=== PATIENT | male | born 1960 | race African-American/Black ===

== ENCOUNTER 2018-12-20 12:54 | Inpatient (IN) | payer MEDICARE ==
[~2018-12-20] VITALS: Ht 165.1 cm; Wt 68.0 kg
[~2018-12-20 12:54] MED LIST: APAP325 MG PO; APRESOLINE50 MG PO; ASCORBIC ACID500 MG PO; CARBATROL 200200 MG PO; CELEXA20 MG PO; DAILY MULTIVITA1 TA1 PO; ISOSORBIDE DINI20 MG PO; LANTUS INSULIN10 ML SC; LEVAQUIN500 MG PO; LOPRESSOR50 MG PO; MAXZIDE-25 MG T1 TAB PO; MELATONIN 3 MG1 TAB PO; NORCO 5/325 TAB1 TA1 PO; NORVASC10 MG PO; NOVOLOG100 U/M1 SQ; PEPCID20 MG PO; TRIMETHOPRIM100 MG PO; ZANAFLEX4 MG PO
--- NOTE | 2018-12-20 14:32 | NUR ---
PATIENT ADMITTED TO ROOM 2228. ALERT BUT NONVERBAL. NODS HEAD IN RESPONSE TO QUESTIONS. LUNGS CLEAR BILATERALLY IN ALL ANTOINE. HEART SOUNDS S1 AND S2 HEARD IN ALL ANTOINE. BOWEL SOUNDS ACTIVE X 4. SKIN INTACT WITHOUT REDNESS. SUPRAPUBIC CATHETER PATENT AND DRAINING YELLOW URINE. G TUBE IN PLACE FOR FEEDINGS. DRSGS CHANGED TO BOTH SITES TODAY 12/20/18. FALL PRECAUTIONS IN PLACE. BED LOW. CALL [place] AND PERSONAL ITEMS IN REACH. VITALS STABLE. WILL CONTINUE TO MONITOR.
[2018-12-20 14:43] VITALS: BP 148/93; BMI 25.0
[2018-12-20] MEDS ORDERED: CARDURA1 MG PO (15:09)
[2018-12-20] MEDS ORDERED: CATAPRES0.1 MG PO (15:10)
[2018-12-20] MEDS ORDERED: VALIUM 2 MG TAB2 MG PO (15:11)
[2018-12-20] MEDS ORDERED: DILANTIN50 MG PO (15:13)
[2018-12-20] MEDS ORDERED: STOOL SOFTENER100 M1 PO (15:14)
[2018-12-20] MEDS ORDERED: GLUCAGEN1 MG/VIAL SC (15:15)
[2018-12-20] MEDS ORDERED: MILK OF MAGNESI30 ML PO (15:16)
[2018-12-20] MEDS ORDERED: LEVEMIR IN100 UNITS/ SC (15:16)
[2018-12-20] MEDS ORDERED: MIRALAX17 GM PO (15:17)
[2018-12-20] MEDS ORDERED: OMEPRAZOLE20 M1 PO (15:18)
[2018-12-20] MEDS ORDERED: ZOFRAN4 MG IV (15:19)
[2018-12-20] MEDS ORDERED: ZOFRAN4 MG PO (15:19)
[2018-12-20] MEDS ORDERED: POTASSIUM20 MEQ/11 PO (15:20)
[2018-12-20] MEDS ORDERED: ZOCOR10 MG PO (15:21)
[2018-12-20] MEDS ORDERED: ZOLOFT50 MG PO (15:21)
[2018-12-20] MEDS ORDERED: REGLAN10 MG PO (15:21)
[2018-12-20] MEDS ORDERED: ACETAMINOPHEN325 MG PO (15:22)
--- NOTE | 2018-12-20 15:31 | NUR ---
IV INSERTED TO RIGHT HAND AFTER 3 ATTEMPTS BY 2 RNS.
--- NOTE | 2018-12-20 16:58 | NUR ---
ORDER PLACED FOR BUN AND CREATININ FOR CT SCAN. CONTRAST GIVEN THROUGH G TUBE.
--- NOTE | 2018-12-20 17:34 | NUR ---
RESTING IN BED. NO SIGNS OF PAIN OR DISTRESS. FALL PRECAUTIONS IN PLACE. BED LOW. WILL CONTINUE TO MONITOR.
[2018-12-20 17:57] LABS: CREATININE - SERUM 2.7 mg/dL (0.6-1.3)
--- NOTE | 2018-12-20 18:23 | NUR ---
RESTING IN BED. DENIES PAIN. DENIES NEEDS.
--- NOTE | 2018-12-20 20:00 | NUR ---
LYING QUEITLY WITH NO COMPLAINTS VOICED. RESP EVEN AND UNLABORED. NO DISTRESS NOTED. IV TO RIGHT HAND INTACT WITHOUT REDNESS OR EDEMA NOTED. PEG TUBE PATENT WITH DRESSING INTACT. SUPRA CATH PATENT AND DRAINING DARK ESTEFANIA URINE. CL IN REACH
[2018-12-20 21:01] VITALS: BP 171/91
--- NOTE | 2018-12-21 00:40 | NUR ---
I have reviewed this patient and I concur with the Shift Assessment completed by the Licensed Practical Nurse today this shift.
[2018-12-21 01:54] VITALS: BP 188/100
[2018-12-21 05:41] VITALS: BP 150/93
[2018-12-21 07:33] LABS: BASOPHILS 0.3 % (0-2); EOSINOPHILS 0.1 % (0-7); HEMATOCRIT 31.7 % (42.0-54.0); HEMOGLOBIN 10.4 g/dL (13.5-17.5); IMMATURE GRANULOCYTES 0.1 % (0-5); LYMPHOCYTES 17.3 % (15-50); MCH 27.4 pg (26.0-34.0); MCHC 32.8 g/dL (31.0-37.0); MCV 83.6 fL (80.0-100.0); MEAN PLATELET VOLUME 9.3 fL (7.4-10.4); NEUTROPHILS 64.2 % (40-80); RBC 3.79 10x6/uL (4.20-6.10); RDW 15.3 % (11.5-14.5); WBC 7.4 10x3/uL (4.8-10.8)
[2018-12-21 07:55] LABS: PLATELET COUNT 484 10x3/uL (130-400)
[2018-12-21 07:56] LABS: ANION GAP 17.8 mmol/L (8-16); CALCIUM 8.9 mg/dL (8.5-10.1); CARBON DIOXIDE 22.9 mmol/L (21.0-32.0); POTASSIUM - SERUM 3.7 mmol/L (3.5-5.1)
--- NOTE | 2018-12-21 08:02 | NUR ---
ALERT AND ORIENTED X 3. VERBALLY RESPONSIVE TO QUESTIONS TODAY IN CONTRAST WITH ADMISSION YESTERDAY. LUNGS CLEAR BILATERALLY IN ALL ANTOINE. HEART SOUNDS S1 AND S2 HEARD IN ALL ANTOINE. BOWEL SOUNDS ACTIVE X 4. STATES THREW UP LAST NIGHT. RACHELL BILL NOTIFIED. NO NEW ORDERS AT THIS TIME. S/P SINHA PATENT AND DRAINING YELLOW URINE. G TUBE PATENT. DENIES PAIN. DENIES NEEDS. FALL PRECAUTIONS IN PLACE. BED LOW[facility]
--- NOTE | 2018-12-21 09:36 | NUR ---
SPOKE WITH [facility] WHO STATED THAT PATIENT HAS A BROTHER BY THE NAME OF GREGORY CABRAL WHO IS PATIENT'S RESPONSIBLE LIBERTARIAN. WAS GIVEN THREE PHONE NUMBERS, A HOME, CELL, AND OFFICE, TO CALL PATIENT'S BROTHER. ATTEMPTED TO CALL BROTHER TO OBTAIN CONSENT FOR EGD. CELL PHONE GOT NO ANSWER. HOME AND OFFICE NUMBERS BOTH LED TO [employer] WHO STATED THEY HAD NO ONE BY THAT NAME.
--- NOTE | 2018-12-21 09:50 | NUR ---
VERBAL CONSENT GIVEN BY PATIENT FOR EGD AND WITNESSED BY TWO NURSES. CONSENTS IN CHART.
--- NOTE | 2018-12-21 09:51 | NUR ---
ADDITION TO PREVIOUS NOTE. VERBAL CONSENT ALSO GIVEN BY PATIENT FOR BLOOD PRODUCTS IF NEEDED AND ANESTHESIA. WITNESSED BY TWO NURSES.
--- NOTE | 2018-12-21 10:12 | NUR ---
SPOKE WITH FERNY SCOTT AND TOLD THEM ABOUT SITUATION WITH BROTHER'S PHONE NUMBERS LEADING TO [employer]. FERNY SCOTT RN STATED "THAT'S WEIRD. I'M NOT SURE."
[2018-12-21 12:07] VITALS: BP 177/90
--- NOTE | 2018-12-21 13:54 | MORECARE ---
CASE MANAGEMENT DISCHARGE SUMMARY PATIENT: EDYTA MEDINA UNIT: [id number] ADM DATE: 12/20/18 AGE: 58 : 64 SEX: M ROOM/BED: D.2228 AUTHOR: NENA MORROW PHYSICIAN: REFERRING PHYSICIAN: MARLENE SILVA MD DATE OF SERVICE: 12/21/18 Discharge Plan Patient Name: EDYTA MEDINA [facility] : 1960 Planned Disposition: [facility] Facility w Plan Readm Anticipated Discharge Date: 12/21/18 Discharge Date: Expected LOS: 1 Initial Reviewer: [email or web address] Initial Review Date: 12/21/2018 Generated: 12/21/18 2:53 pm DCPIA - Discharge Planning Initial Assessment Updated by [email or web address]: Chichi Garzon on 12/21/18 1:51 pm * Is the patient Alert and Oriented? No * PCP Dr. Huggins * Pharmacy Per [place] * Preadmission Environment [facility] * Facility Name [facility] * List name and contact numbers for known caregivers / representatives who currently or will assist patient after discharge: Tyler Jak - brother - [phone] * Additional services required to return to the preadmission environment? No * Can the patient safely return to the preadmission environment? Yes * Has this patient been hospitalized within the prior 30 days at any hospital? No Coverage Notice Reviewer: [id number] Zarina Garzon Notice Issued Date-Time: 12/21/2018 13:47 Notice Type: Patient Choice Letter Notice Delivered To: Family Member Relationship to Patient: Brother Mixer Pigment Name: Tyler Benedict Delivery Method: PHONE - Phone Vida Days: Prior Verbal Notification: Recipient Understood Notice: Yes Recipient Signature: Med Rec Note Co-signed by Attending: Coverage Notice Comment: SHE[facility]BY for [facility] Patient Name: EDYTA MEDINA Page 35760 at 1354 All edits/amendments must be made on the electronic document DICTATION DATE: 12/21/18 1353 GIFT BASKET PACKER: RUFUS 12/21/18 1353 RPT#: [id number] DC DATE: STATUS: ADM IN [facility] [address] [place] [address] END OF REPORT
--- NOTE | 2018-12-21 14:01 | MORECARE ---
CASE MANAGEMENT DISCHARGE SUMMARY PATIENT: EDYTA MEDINA UNIT: [id number] ADM DATE: 12/20/18 AGE: 58 : 64 SEX: M ROOM/BED: D.2228 AUTHOR: ODALYSDOC PHYSICIAN: REFERRING PHYSICIAN: MARLENE SILVA MD DATE OF SERVICE: 12/21/18 Discharge Plan Patient Name: EDYTA MEDINA Facility: [facility]:[place] : 1960 Planned Disposition: [facility] Facility w Plan Readm Anticipated Discharge Date: 12/21/18 Discharge Date: Expected LOS: 1 Initial Reviewer: [email or web address] Initial Review Date: 12/21/2018 Generated: 12/21/18 3:01 pm Comments DCP- Discharge Planning Updated by [email or web address]: Chichi Garzon on 12/21/18 12:[address] Patient Name: EDYTA MEDINA Admission Status: Elective Accout number: [id number] Admission Date: 12-20-2018 : 1960 Admission Diagnosis: Attending: MARLENE SILVA Current LOS: 1 Anticipated DC Date: 12-21-2018 Planned Disposition: [facility] w Plan Readm Primary Insurance: MEDICARE A & B Discharge Planning Comments: CM called [facility] to get a call or contact centre operator for this patient. His brother, Tyler, is his call or contact centre operator. I also verified per Simon request that code status is a full code per custodial records. Patient is a jail resident of [facility]. His brother states he will return there on discharge. His brother states he is dependent on the nursing staff there. He states he is able to transfer in their van when ready to return. CM will continue to follow and assist with discharge planning/needs. Tyler Benedict - brother - [phone] [facility] - [phone] Post Hole Digging Machine Operator: Chichi Garzon DCPIA - Discharge Planning Initial Assessment Updated by [email or web address]: Chichi Garzon on 12/21/18 1:51 pm * Is the patient Alert and Oriented? No * PCP Dr. Huggins * Pharmacy Per [facility] * Preadmission Environment [facility] * Facility Name [facility] * List name and contact numbers for known caregivers / representatives who currently or will assist patient after discharge: Tyler Srinivasan brother - [phone] * Additional services required to return to the preadmission environment? No * Can the patient safely return to the preadmission environment? Yes * Has this patient been hospitalized within the prior 30 days at any hospital? No Coverage Notice Reviewer: [id number] Zarina Garzon Notice Issued Date-Time: 12/21/2018 13:47 Notice Type: Patient Choice Letter Notice Delivered To: Family Member Relationship to Patient: Brother Hammer Mill Operator Name: Tyler Benedict Delivery Method: PHONE - Phone Vida Days: Prior Verbal Notification: Recipient Understood Notice: Yes Recipient Signature: Med Rec Note Co-signed by Attending: Coverage Notice Comment: SHELBY for [facility] Last DP export: 12/21/18 12:53 p Patient Name: EDYTA MEDINA Page 61985 at 1401 All edits/amendments must be made on the electronic document DICTATION DATE: 12/21/18 1401 PUTTY REMOVER: RUFUS 12/21/18 1401 RPT#: [id number] DC DATE: STATUS: ADM IN [facility] [address] [place] [address] END OF REPORT
--- NOTE | 2018-12-21 14:45 | NUR ---
PATIENT FOUND WITH VOMIT ON GOWN AND BED SOILED. WILL CHANGE LINENS
--- NOTE | 2018-12-21 15:07 | NUR ---
PREOP MEDICATION GIVEN.
[2018-12-21 15:47] VITALS: Ht 165.1 cm; Wt 68.0 kg
--- NOTE | 2018-12-21 16:45 | NUR ---
REPORT GIVEN TO CARLA MORENO. PATIENT HANDED OFF.
--- NOTE | 2018-12-21 19:00 | NUR ---
REPORT RECEIVED AND CARE OF PT ASSUMED. PT LYING IN SUPINE POSITION WITH EYES CLOSED. SUPRA PUBIC CATHETER DRAINING TO GRAVITY WITH YELLOW URINE IN COLLECTION BAG. NPO STATUS IN PLACE. IV IN RIGHT WRIST PATENT WITH 1/2 NS INFUSING AT 100 ML / HR. G-TUBE CLAMPED. WILL MONITOR FOR NEEDS.
[2018-12-21 20:00] VITALS: BP 191/95
--- NOTE | 2018-12-21 21:30 | NUR ---
HS MEDICATIONS GIVEN VIA G-TUBE. FLUSHED WITH 60 ML WATER BEFORE AND AFTER MEDS.
[2018-12-22] VITALS: BP 164/93
[2018-12-22 04:00] VITALS: BP 174/90
[2018-12-22 04:02] LABS: BASOPHILS 0.2 % (0-2); EOSINOPHILS 0 % (0-7); HEMATOCRIT 29.1 % (42.0-54.0); HEMOGLOBIN 9.6 g/dL (13.5-17.5); IMMATURE GRANULOCYTES 0.3 % (0-5); MCH 27.4 pg (26.0-34.0); MCV 83.1 fL (80.0-100.0); MONOCYTES 16.7 % (2-11); NEUTROPHILS 70.8 % (40-80); PLATELET COUNT 397 10x3/uL (130-400); RDW 15.6 % (11.5-14.5)
[2018-12-22 04:06] LABS: WBC 13.6 10x3/uL (4.8-10.8)
[2018-12-22 04:14] LABS: ANION GAP 14.3 mmol/L (8-16); CALCIUM 8.7 mg/dL (8.5-10.1); CARBON DIOXIDE 24.8 mmol/L (21.0-32.0); POTASSIUM - SERUM 4.1 mmol/L (3.5-5.1)
--- NOTE | 2018-12-22 05:30 | NUR ---
PT TURNED AND BEDDING CHANGED IF NEEDED EVERY 2 HOURS DURING THIS SHIFT...PROPPED WITH PILLOWS.
--- NOTE | 2018-12-22 07:30 | NUR ---
PT RESTING IN BED, EYES CLOSED. RESPIRATIONS EVEN AND UNLABORED. NO C/O PAIN. NO S/S OF ACUTE DISTRESS NOTED. PT ACHS BLOODSUGARS. PT ON BEDREST. CONTRACTURES TO RIGHT AND LEFT HANDS. SUPRAPUBIC CATHETER PRESENT. INCONTINENT OF BOWEL. SCD'S REFUSED. G-TUBE PRESENT, MEDS GIVEN THROUGH TUBE. IV TO RIGHT WRIST, 1/2 NS INFUSING @ 100ML/HR. SITE PATENT WITHOUT REDNESS OR SWELLING. PT DENIES ANYTHING FURTHER AT THIS TIME. CALL LIGHT IN REACH. WILL CONTINUE TO MONITOR.
[2018-12-22 09:01] VITALS: BP 129/85
--- NOTE | 2018-12-22 09:55 | NUR ---
PT NON RESPONSIVE TO STIMULI, CHECKED BLOOD SUGAR. BLOOD SUGAR 44, CALLED [facility], ORDERED D5O FOR PT. GAVE PT D50, RECHECKED BLOOD SUGAR, 167. PT NOW ALERT AND RESPONSIVE. NO S/S OF ACUTE DISTRESS NOTED. CALL LIGHT IN REACH. WILL CONTINUE TO MONITOR.
--- NOTE | 2018-12-22 13:00 | NUR ---
NUTRITION F/U RECEIVED VERBAL ORDER FROM MD TO RESUME ALF TUBE FEEDS. WILL RUN CONTINUOUS INSTEAD OF BOLUS IN LIGHT OF RECENT N/V. OK TO RESUME BOLUS FEEDS UPON RETURN TO [place] RD FOLLOWING
[2018-12-22 13:07] VITALS: BP 140/78
--- NOTE | 2018-12-22 13:57 | NUR ---
STARTED SUPLENA TUBE FEEDINGS @ 15ML/HR WITH 25ML FLUSH Q HOUR.
--- NOTE | 2018-12-22 14:34 | MORECARE ---
CASE MANAGEMENT DISCHARGE SUMMARY PATIENT: EDYTA MEDINA UNIT: [id number] ADM DATE: 12/20/18 AGE: 58 : 64 SEX: M ROOM/BED: D.2228 AUTHOR: ODALYSDOC PHYSICIAN: REFERRING PHYSICIAN: MARLENE SILVA MD DATE OF SERVICE: 12/22/18 Discharge Plan Patient Name: EDYTA MEDINA Facility: [facility]:[place] : 1960 Planned Disposition: [facility] Facility w Plan Readm Anticipated Discharge Date: 12/21/18 Discharge Date: Expected LOS: 1 Initial Reviewer: [id number] Initial Review Date: 12/21/2018 Generated: 12/22/18 3:34 pm Comments DCP- Discharge Planning Updated by [id number]: Chichi Garzon on 12/21/18 12:[address] Patient Name: EDYTA MEDINA Admission Status: Elective Accout number: [id number] Admission Date: 12-20-2018 : 1960 Admission Diagnosis: Attending: MARLENE SILVA Current LOS: 1 Anticipated DC Date: 12-21-2018 Planned Disposition: [facility] w Plan Readm Primary Insurance: MEDICARE A & B Discharge Planning Comments: CM called [facility] to get a contact acid plant operator for this patient. His brother, Tyler, is his contact acid plant operator. I also verified per Simon request that code status is a full code per [facility] records. Patient is a [facility] resident of [facility]. His brother states he will return there on discharge. His brother states he is dependent on the nursing staff there. He states he is able to transfer in their van when ready to return. CM will continue to follow and assist with discharge planning/needs. Tyler Benedict - brother - [phone] [facility] - [phone] Psychologist Military Personnel: Chichi Garzon DCPIA - Discharge Planning Initial Assessment Updated by [email or web address]: Chichi Garzon on 12/21/18 1:51 pm * Is the patient Alert and Oriented? No * PCP Dr. Huggins * Pharmacy Per [facility] * Preadmission Environment [facility] * Facility Name [facility] * List name and contact numbers for known caregivers / representatives who currently or will assist patient after discharge: Tyler Srinivasan brother - [phone] * Additional services required to return to the preadmission environment? No * Can the patient safely return to the preadmission environment? Yes * Has this patient been hospitalized within the prior 30 days at any hospital? No External Providers External Provider: [facility] Next Contact Date: Service Request Date: Service Type: Resolution: Reviewer: Comments: Coverage Notice Reviewer: [id number] Zarina Garzon Notice Issued Date-Time: 12/21/2018 13:47 Notice Type: Patient Choice Letter Notice Delivered To: Family Member Relationship to Patient: Brother Train Crew Member Name: Tyler Benedict Delivery Method: PHONE - Phone Vida Days: Prior Verbal Notification: Recipient Understood Notice: Yes Recipient Signature: Med Rec Note Co-signed by Attending: Coverage Notice Comment: SHELBY for [facility] Last DP export: 12/21/18 1:01 p Patient Name: EDYTA MEDINA Page 18111 at 1434 All edits/amendments must be made on the electronic document DICTATION DATE: 12/22/18 1434 BENCH EXAMINER: RUFUS 12/22/18 1434 RPT#: [id number] DC DATE: STATUS: ADM IN [facility] [address] [place] [address] END OF REPORT
--- NOTE | 2018-12-22 15:00 | MORECARE ---
CASE MANAGEMENT DISCHARGE SUMMARY PATIENT: EDYTA MEDINA UNIT: [id number] ADM DATE: 12/20/18 AGE: 58 : 64 SEX: M ROOM/BED: D.2228 AUTHOR: NENA MORROW PHYSICIAN: REFERRING PHYSICIAN: MARLENE SILVA MD DATE OF SERVICE: 12/22/18 Discharge Plan Patient Name: EDYTA MEDINA Facility: [facility]:[place] : 1960 Planned Disposition: [facility] Facility w Plan Readm Anticipated Discharge Date: 12/21/18 Discharge Date: Expected LOS: 1 Initial Reviewer: [id number] Initial Review Date: 12/21/2018 Generated: 12/22/18 4:00 pm Comments DCP- Discharge Planning Updated by [id number]: Chichi Garzon on 12/22/18 1:[address] I spoke with Courtney at [facility] and informed her that Simon (RUBBER COMPOUNDER SUPERVISOR for Dr. Silva) states that he anticipates patient can return there tomorrow. Updated clinical faxed to [facility]. Courtney states that he will need to come via ambulance. CM to fax discharge MAR/orders on discharge. CM will continue to follow and assist with discharge planning/needs. DCP- Discharge Planning Updated by [id number]: Chichi Garzon on 12/21/18 12:[address] Patient Name: EDYTA MEDINA Admission Status: Elective Accout number: [id number] Admission Date: 12-20-2018 : 1960 Admission Diagnosis: Attending: MARLENE SILVA Current LOS: 1 Anticipated DC Date: 12-21-2018 Planned Disposition: [facility] w Plan Readm Primary Insurance: MEDICARE A & B Discharge Planning Comments: CM called [facility] to get a contact center associate for this patient. His brother, Tyler, is his contact center associate. I also verified per Simon request that code status is a full code per half-way records. 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 His brother states he will return there on discharge. His brother states he is dependent on the nursing staff there. He states he is able to transfer in their van when ready to return. CM will continue to follow and assist with discharge planning/needs. Tyler robles - [phone] [facility] - [phone] Gravity Manager: Chichi Garzon DCPIA - Discharge Planning Initial Assessment Updated by [id number]: Chichi Garzon on 12/21/18 1:51 pm * Is the patient Alert and Oriented? No * PCP Dr. Huggins * Pharmacy Per [facility] * Preadmission Environment [facility] * Facility Name [facility] * List name and contact numbers for known caregivers / representatives who currently or will assist patient after discharge: Tyler robles - [phone] * Additional services required to return to the preadmission environment? No * Can the patient safely return to the preadmission environment? Yes * Has this patient been hospitalized within the prior 30 days at any hospital? No Coverage Notice Reviewer: [id number] Zarina Garzon Notice Issued Date-Time: 12/21/2018 13:47 Notice Type: Patient Choice Letter Notice Delivered To: Family Member Relationship to Patient: Brother Orthodontic Technician Name: Tyler Benedict Delivery Method: PHONE - Phone Vida Days: Prior Verbal Notification: Recipient Understood Notice: Yes Recipient Signature: Med Rec Note Co-signed by Attending: Coverage Notice Comment: SHELBY for [facility] Last DP export: 12/22/18 1:34 p Patient Name: EDYTA MEDINA Page [id number] at 1500 All edits/amendments must be made on the electronic document DICTATION DATE: 12/22/18 1500 DIRECTOR DIGITAL ANALYTICS: RUFUS 12/22/18 1500 RPT#: [id number] DC DATE: STATUS: ADM IN [facility] [address] [place] [address] END OF REPORT
--- NOTE | 2018-12-22 16:14 | MORECARE ---
CASE MANAGEMENT DISCHARGE SUMMARY PATIENT: EDYTA MEDINA UNIT: [id number] ADM DATE: 12/20/18 AGE: 58 : 64 SEX: M ROOM/BED: D.2228 AUTHOR: NENA MORROW PHYSICIAN: REFERRING PHYSICIAN: MARLENE SILVA MD DATE OF SERVICE: 12/22/18 Discharge Plan Patient Name: EDYTA MEDINA Facility: [facility]:[place] : 1960 Planned Disposition: [facility] Facility w Plan Readm Anticipated Discharge Date: 12/21/18 Discharge Date: Expected LOS: 1 Initial Reviewer: [email or web address] Initial Review Date: 12/21/2018 Generated: 12/22/18 5:14 pm Comments DCP- Discharge Planning Updated by [id number]: Chichi Garzon on 12/22/18 3:[address] Received a call from Courtney at [facility]. Patient will go to a skilled bed there when discharged. CM will continue to follow and assist with discharge planning/needs. DCP- Discharge Planning Updated by [id number]: Chichi Garzon on 12/22/18 1:[address] I spoke with Courtney at [facility] and informed her that Simon (DRILLER OPERATOR for Dr. Silva) states that he anticipates patient can return there tomorrow. Updated clinical faxed to [facility]. Courtney states that he will need to come via ambulance. CM to fax discharge MAR/orders on discharge. CM will continue to follow and assist with discharge planning/needs. DCP- Discharge Planning Updated by [id number]: Chichi Garzon on 12/21/18 12:[address] Patient Name: EDYTA MEDINA Admission Status: Elective Accout number: [id number] Admission Date: 12-20-2018 : 1960 Admission Diagnosis: Attending: MARLENE SILVA Current LOS: 1 Anticipated DC Date: 12-21-2018 Planned Disposition: [facility] Facility w Plan Readm Primary Insurance: MEDICARE A & B Discharge Planning Comments: CM called [facility] to get a civil engineering design draftsperson for this patient. His brother, Tyler, is his civil engineering design draftsperson. I also verified per Simon request that code status is a full code per penitentiary records. Patient is a [facility] resident of [facility]. His brother states he will return there on discharge. His brother states he is dependent on the nursing staff there. He states he is able to transfer in their van when ready to return. CM will continue to follow and assist with discharge planning/needs. Tyler robles - [phone] [facility] - [phone] Art Glass Setter: Chichi Garzon DCPIA - Discharge Planning Initial Assessment Updated by [id number]: Chichi Garzon on 12/21/18 1:51 pm * Is the patient Alert and Oriented? No * PCP Dr. Huggins * Pharmacy Per [facility] * Preadmission Environment [facility]-Term Longterm * Facility Name [facility] * List name and contact numbers for known caregivers / representatives who currently or will assist patient after discharge: Tyler robles - [phone] * Additional services required to return to the preadmission environment? No * Can the patient safely return to the preadmission environment? Yes * Has this patient been hospitalized within the prior 30 days at any hospital? No Coverage Notice Reviewer: [id number] - Chichi Garzon Notice Issued Date-Time: 12/21/2018 13:47 Notice Type: Patient Choice Letter Notice Delivered To: Family Member Relationship to Patient: Brother Mobile Designer Name: Tyler Benedict Delivery Method: PHONE - Phone Vida Days: Prior Verbal Notification: Recipient Understood Notice: Yes Recipient Signature: Med Rec Note Co-signed by Attending: Coverage Notice Comment: SHELBY for [facility] Last DP export: 12/22/18 2:00 p Patient Name: EDYTA MEDINA Page 31655 at 1614 All edits/amendments must be made on the electronic document DICTATION DATE: 12/22/18 1614 HOME HEALTH CAREGIVER: RUFUS 12/22/18 1614 RPT#: [id number] DC DATE: STATUS: ADM IN [facility] [address] [place] [address] END OF REPORT
[2018-12-22 17:23] VITALS: BP 134/64
--- NOTE | 2018-12-22 18:05 | NUR ---
I have reviewed this patient and I concur with the Shift Assessment completed by the Licensed Practical Nurse today this shift.
--- NOTE | 2018-12-22 18:31 | NUR ---
PT RESTING IN BED, EYES CLOSED. RESPIRATIONS EVEN AND UNLABORED. NO C/O PAIN. NO S/S OF ACUTE DISTRESS NOTED. AROUSES TO VOICE, ABLE TO NOD HEAD YES AND NO TO ANSWER QUESTIONS. PT DENIES ANYTHING FURTHER AT THIS TIME. CALL LIGHT IN REACH. WILL CONTINUE TO MONITOR.
--- NOTE | 2018-12-22 18:34 | NUR ---
INCREASED TUBE FEEDING TO 30ML/HR. PT TOLERATING FEEDING AT THIS TIME.
--- NOTE | 2018-12-22 19:30 | NUR ---
SUPINE IN BED, NODS/SHAKES HEAD TO ANSWER QUESTION. PT EVENTUALLY BEGAN TO CONVERSE BACK, ASKING WHERE I WAS FROM AND SAID HE WAS FROM HERE. I TOLD HIM HE HAD ANOTHER NURSE BELIEVING HE DIDN'T SPEAK, PT SMILED AND LAUGH AND SAID, "I TALK SOMETIMES." DENIES PAIN/CURRENT NEEDS. WILL CONTINUE TO MONITOR
[2018-12-22 20:00] VITALS: BP 165/94
[2018-12-23] VITALS: BP 161/90
--- NOTE | 2018-12-23 03:20 | NUR ---
I have reviewed this patient and I concur with the Shift Assessment completed by the Licensed Practical Nurse today this shift.
[2018-12-23 04:00] VITALS: BP 178/94
--- NOTE | 2018-12-23 07:35 | NUR ---
PT RESTING IN BED, EYES OPEN. NO C/O PAIN. NO S/S OF ACUTE DISTRESS NOTED. PT HAS SUPRAPUBIC CATHETER. INCONTINENT OF BOWEL. SORE ON RIGHT BUTTOCK. IV RIGHT WRIST, 1/2 NS INFUSING @ 100ML/HR. SITE PATENT WITHOUT REDNESS OR SWELLING. PEG TUBE SUPLENA 30ML/HR. PT ACHS. PT DENIES ANYTHING FURTHER AT THIS TIME. CALL LIGHT IN REACH. WILL CONTINUE TO MONITOR.
[2018-12-23 07:43] LABS: BASOPHILS 0.4 % (0-2); EOSINOPHILS 1.3 % (0-7); HEMATOCRIT 27.7 % (42.0-54.0); HEMOGLOBIN 9.1 g/dL (13.5-17.5); IMMATURE GRANULOCYTES 0.1 % (0-5); LYMPHOCYTES 21.6 % (15-50); MCH 27.2 pg (26.0-34.0); MCHC 32.9 g/dL (31.0-37.0); MCV 82.7 fL (80.0-100.0); MEAN PLATELET VOLUME 9.1 fL (7.4-10.4); MONOCYTES 14.8 % (2-11); NEUTROPHILS 61.8 % (40-80); PLATELET COUNT 353 10x3/uL (130-400); RBC 3.35 10x6/uL (4.20-6.10); RDW 15.6 % (11.5-14.5)
[2018-12-23 07:48] LABS: WBC 6.7 10x3/uL (4.8-10.8)
[2018-12-23 07:51] LABS: ANION GAP 14.7 mmol/L (8-16); CALCIUM 7.6 mg/dL (8.5-10.1); CARBON DIOXIDE 21.5 mmol/L (21.0-32.0)
[2018-12-23 07:59] LABS: POTASSIUM - SERUM 3.2 mmol/L (3.5-5.1)
[2018-12-23 08:42] VITALS: BP 156/79
[2018-12-23] MEDS ORDERED: CARAFATE1 G/10 ML OTH (10:04)
--- NOTE | 2018-12-23 11:03 | NUR ---
I have reviewed this patient and I concur with the Shift Assessment completed by the Licensed Practical Nurse today this shift.
[2018-12-23 14:31] VITALS: BP 174/91
--- NOTE | 2018-12-23 14:41 | MORECARE ---
CASE MANAGEMENT DISCHARGE SUMMARY PATIENT: EDYTA MEDINA UNIT: [id number] ADM DATE: 12/20/18 AGE: 58 : 64 SEX: M ROOM/BED: D.2228 AUTHOR: NENA MORROW PHYSICIAN: REFERRING PHYSICIAN: MARLENE SILVA MD DATE OF SERVICE: 12/23/18 Discharge Plan Patient Name: EDYTA MEDINA Facility: [facility]:[place] : 1960 Planned Disposition: [facility] Facility w Plan Readm Anticipated Discharge Date: 12/21/18 Discharge Date: Expected LOS: 1 Initial Reviewer: [email or web address] Initial Review Date: 12/21/2018 Generated: 12/23/18 3:41 pm Comments DCP- Discharge Planning Updated by [email or web address]: Chichi Garzon on 12/22/18 3:[address] Received a call from Courtney at [facility]. Patient will go to a skilled bed there when discharged. CM will continue to follow and assist with discharge planning/needs. DCP- Discharge Planning Updated by [email or web address]: Chichi Garzon on 12/22/18 1:[address] I spoke with Courtney at [facility] and informed her that Simon (AD COPY WRITER for Dr. Silva) states that he anticipates patient can return there tomorrow. Updated clinical faxed to [facility]. Courtney states that he will need to come via ambulance. CM to fax discharge MAR/orders on discharge. CM will continue to follow and assist with discharge planning/needs. DCP- Discharge Planning Updated by [email or web address]: Chichi Garzon on 12/21/18 12:[address] Patient Name: EDYTA MEDINA Admission Status: Elective Accout number: [id number] Admission Date: 12-20-2018 : 1960 Admission Diagnosis: Attending: MARLENE SILVA Current LOS: 1 Anticipated DC Date: 12-21-2018 Planned Disposition: [facility] Facility w Plan Readm Primary Insurance: MEDICARE A & B Discharge Planning Comments: CM called [facility] to get a aircraft detail draftsperson for this patient. His brother, Tyler, is his aircraft detail draftsperson. I also verified per Simon request that code status is a full code per custodial records. Patient is a senior living resident of [facility]. His brother states he will return there on discharge. His brother states he is dependent on the nursing staff there. He states he is able to transfer in their van when ready to return. CM will continue to follow and assist with discharge planning/needs. Tyler robles - [phone] [facility] - [phone] Interlocking And Signal Mechanic: Chichi Garzon DCPIA - Discharge Planning Initial Assessment Updated by [email or web address]: Chichi Garzon on 12/21/18 1:51 pm * Is the patient Alert and Oriented? No * PCP Dr. Huggins * Pharmacy Per [facility] * Preadmission Environment Skilled Nursing [facility] * Facility Name [facility] * List name and contact numbers for known caregivers / representatives who currently or will assist patient after discharge: Tyler robles - [phone] * Additional services required to return to the preadmission environment? No * Can the patient safely return to the preadmission environment? Yes * Has this patient been hospitalized within the prior 30 days at any hospital? No Coverage Notice Reviewer: [email or web address] - Chichi Garzon Notice Issued Date-Time: 12/21/2018 13:47 Notice Type: Patient Choice Letter Notice Delivered To: Family Member Relationship to Patient: Brother Byproducts Extractor Name: Tyler Benedict Delivery Method: PHONE - Phone Vida Days: Prior Verbal Notification: Recipient Understood Notice: Yes Recipient Signature: Med Rec Note Co-signed by Attending: Coverage Notice Comment: SHELBY for [facility] Last DP export: 12/22/18 3:14 p Patient Name: EDYTA MEDINA Page 32415 at 1441 All edits/amendments must be made on the electronic document DICTATION DATE: 12/23/18 1440 REFRACTORY PRODUCTS SUPERVISOR: RUFUS 12/23/18 1440 RPT#: [id number] DC DATE: STATUS: ADM IN [facility] [address] [place] [address] END OF REPORT
--- NOTE | 2018-12-23 14:48 | MORECARE ---
CASE MANAGEMENT DISCHARGE SUMMARY PATIENT: EDYTA MEDINA UNIT: [id number] ADM DATE: 12/20/18 AGE: 58 : 64 SEX: M ROOM/BED: D.2228 AUTHOR: ODALYS,DOC PHYSICIAN: REFERRING PHYSICIAN: MARLENE SILVA MD DATE OF SERVICE: 12/23/18 Discharge Plan Patient Name: EDYTA MEDINA Facility: [facility]:[place] : 1960 Planned Disposition: [facility] Facility w Plan Readm Anticipated Discharge Date: 12/21/18 Discharge Date: Expected LOS: 1 Initial Reviewer: [email or web address] Initial Review Date: 12/21/2018 Generated: 12/23/18 3:48 pm Comments DCP- Discharge Planning Updated by [email or web address]: Miley Billings on 12/23/18 1:[address] LATE ENTRY [address] [facility] AT [phone] REGARDING DISCHARGE BACK TO FACILITY. SPOKE WITH MARIANO, DEPOSITION REPORTER. UPDATE GIVEN. PATIENT WILL BE ACCEPTED BACK TODAY. NATE WILL BE RECEIVING NURSE FOR REPORT FROM HIS PRIMARY NURSE. CM FAXED D/C SUMMARY DISCHARGE MED LIST, LABS, IMAGING REPORT, VITAL SIGNS AND I/O SHEET TO [phone]. NURSE TO ADDRESS TUBE FEEDING SCHEDULE. DIETITIAN HAS UPDATED RECOMMENDATIONS. PATIENT WILL BE TRANSPORTED BY AMBULANCE. [facility] HAS BEEN NOTIFIED BY PRIMARY NURSE. PCS FORM COMPLETED. NURSE STATED PATIENT WILL BE ADMITTED TO A MEDICARE BED. DCP- Discharge Planning Updated by [email or web address]: Chichi Garzon on 12/22/18 3:[address] Received a call from Mariano at [facility]. Patient will go to a skilled bed there when discharged. CM will continue to follow and assist with discharge planning/needs. DCP- Discharge Planning Updated by [id number]: Chichi Garzon on 12/22/18 1:[address] I spoke with Mariano at [facility] and informed her that Simon (PLATE PRINTER for Dr. Silva) states that he anticipates patient can return there tomorrow. Updated clinical faxed to [facility]. Mariano states that he will need to come via ambulance. CM to fax discharge MAR/orders on discharge. CM will continue to follow and assist with discharge planning/needs. DCP- Discharge Planning Updated by [email or web address]: Chichi Garzon on 12/21/18 12:[address] Patient Name: EDYTA MEDINA Admission Status: Elective Accout number: [id number] Admission Date: 12-20-2018 : 1960 Admission Diagnosis: Attending: MARLENE SILVA Current LOS: 1 Anticipated DC Date: 12-21-2018 Planned Disposition: [facility] Facility w Plan Readm Primary Insurance: MEDICARE A & B Discharge Planning Comments: CM called [facility] to get a contact center director for this patient. His brother, Tyler, is his contact center director. I also verified per Simon request that code status is a full code per group home records. Patient is a detention resident of [facility]. His brother states he will return there on discharge. His brother states he is dependent on the nursing staff there. He states he is able to transfer in their van when ready to return. CM will continue to follow and assist with discharge planning/needs. Tyler robles - [phone] [facility] [phone] Accountant Systems: Chichi Garzon DCPIA - Discharge Planning Initial Assessment Updated by [email or web address]: Chichi Garzon on 12/21/18 1:51 pm * Is the patient Alert and Oriented? No * PCP Dr. Huggins * Pharmacy Per [facility] * Preadmission Environment Public Health Advisor [facility] * Facility Name [facility] * List name and contact numbers for known caregivers / representatives who currently or will assist patient after discharge: Tyler goff - [phone] * Additional services required to return to the preadmission environment? No * Can the patient safely return to the preadmission environment? Yes * Has this patient been hospitalized within the prior 30 days at any hospital? No Coverage Notice Reviewer: [id number] - Chichi Garzon Notice Issued Date-Time: 12/21/2018 13:47 Notice Type: Patient Choice Letter Notice Delivered To: Family Member Relationship to Patient: Brother Manager Parking Name: Tyler Benedict Delivery Method: PHONE - Phone Vida Days: Prior Verbal Notification: Recipient Understood Notice: Yes Recipient Signature: Med Rec Note Co-signed by Attending: Coverage Notice Comment: SHELBY for [facility] Last DP export: 12/23/18 1:41 pm Patient Name: EDYTA MEDINA Page [id number] at 1448 All edits/amendments must be made on the electronic document DICTATION DATE: 12/23/181446 COMMUNITY HEALTH WORKER: RUFUS 12/23/181446 RPT#: [id number] DC DATE: STATUS: ADM IN [facility] [address] [place] [address] END OF REPORT
--- NOTE | 2018-12-23 16:21 | NUR ---
PT DISCHARGED BACK TO INTERMEDIATE IN PORTAL VIA STRETCHER BY AMBULANCE. DISCONTINUED IV, CATHETER TIP INTACT. PT DENIES ANYTHING FURTHER.
== END 2018-12-23 16:23 | DRG 381 ==
LOC: D.MS 12:54
PROVIDERS: Internal Medicine Gastroenterology; ADMIT Legal Medicine; ATTEND Legal Medicine
PROC: 0DJ08ZZ Inspection of Upper Intestinal Tract, Via Natural or Artificial Opening Endoscopic (ICD-10-PCS; principal; 2018-12-21 15:54)
DX: K22.10 Ulcer of esophagus without bleeding (principal); N18.4 Chronic kidney disease, stage 4 (severe); N17.9 Acute kidney failure, unspecified; K44.9 Diaphragmatic hernia without obstruction or gangrene; R11.2 Nausea with vomiting, unspecified; E11.22 Type 2 diabetes mellitus with diabetic chronic kidney disease; I12.9 Hypertensive chronic kidney disease with stage 1 through stage 4 chronic kidney disease, or unspecified chronic kidney disease; K29.80 Duodenitis without bleeding

== ENCOUNTER → 2019-05-23 11:17 | Outpatient (CLI) | payer MEDICARE ==
[2018-12-21 15:47] VITALS: BMI 24.9
--- NOTE | ~2019-05-23 | HEMODYNAMI ---
PATIENT:EDYTA MEDINA MEDICAL RECORD: [id number] : 64 LOCATION:D. ADMISSION DATE: 05/23/19 Generatedon:05/23/201913:42 Patient name: EDYTA MEDINA Patient #: [id number] SSN: : 1960 Date of study: 05/23/2019 Page: Of Hemodynamic Procedure Report Patient Data Patient Demographics Procedure consent was obtained First Name: EDYTA Gender: Male Last Name: CAROL : 1960 Middle Initial: MARK Age: 58 year(s) Patient #: [id number] Race: Black Additional ID: [id number] Contact details Address: [address] [place] [address] State: [place] City: [place] Zip code: [address] Past Medical History Allergies: No known allergies Admission Admission Data Admission Date: 05/23/2019 Admission Time: 11:17 Procedure Procedure Types Cath Procedure Peripheral Cath Diagnostic Procedure Rnfa Peripheral Procedures Gastric G J Tube Replacement Procedure Description Procedure Date Procedure Date: 05/23/2019 Procedure Start Time: 13:14 Procedure Staff Name Function Cam Quinonez MD Performing Physician Devika Perez RT Pie Maker Lucina Castro RN Nurse MARQUIS WEBB RT Scrub Hemodynamics Rest Pre Cath Intra NCS Post Cath Procedure Log Time Note 12:31:41 Time tracking: Regular hours (M-F 7:00 - 5:00) 12:32:01 Plan of Care:Hemodynamics will remain stable., Cardiac rhythm will remain stable., Comfort level will be maintained., Respiratory function will remain adequate., Patient/ family verbilizes understanding of procedure., Procedure tolerated without complication., Recovers from procedure without complications.. 12:32:11 Patient received from Other to IR Alert and oriented. Tansferred to table in Supine position. 12:32:34 Signed procedure consent form obtained from verbally. 12:32:46 H&P Date Dictated: 05/23/2019 Within 30 days and on chart.. 12:33:09 Unable to provide pre-op teaching due to educational barrier. [facility] PATIENT,CVA 12:33:16 Family unavailable. 12:33:19 Patient NPO since Midnight. 12:33:30 Patient allergic to No known allergies 12:33:38 Is the patient allergic to Iodine/contrast media? No. 12:39:58 Is patient on blood thinner?No 12:40:02 Patient diabetic? Yes. 12:40:26 Left abdomen area was prepped with chlora-prep and draped in sterile fashion 12:40:28 - 12:40:35 Use device set IR Diagnostic 12:40:37 Sterile Angiographic Pack opened to sterile field. 12:40:39 Bag Decanter (2001S) opened to sterile field. 12:40:50 - 13:07:05 GLIDE CATHETER 5FR ANGLED 65cm (CG507) opened to sterile field. 13:07:06 GLIDE WIRE Angled Super Stiff 180cm ([id number]) opened to sterile field. 13:13:29 GASTRO-ENTERIC 18Fr Tube (329509) opened to sterile field. 13:13:35 - 13:13:37 Physician arrived 13:13:38 --------ALL STOP TIME OUT------ 13:13:38 Final Timeout: patient, procedure, and site verified with staff and physician. All members of the team are in agreement. 13:14:15 Fire Safety Assessment: A--An alcohol-based skin anteseptic being used preoperatively. 13:14:26 Procedure started. 13:14:26 Full Disclosure recording started 13:14:32 Local anesthetic to Abdominal area with Lidocaine 1% by Cam Quinonez MD.INITIAL ACCESS ONLY 13:40:50 18FR G/J TUBE PLACED 13:40:57 Procedure ended.(Physican Out) 13:41:39 Procedure and supply charges have been captured, reviewed, submitted an d are correct. Device Usage Item Name Manufacture Quantity Catalog Hospital Part Current Minim al Lot# / Number Charge Number Stock Stock Serial# Code Sterile Cardinal 1 [id number] 5 Angiographic Health Pack Bag Decanter Microtek [id number] 78833 837725 5 () [employer] GLIDE CATHETER Terumo 1 CG507 329089 776491 5 5FR ANGLED 65cm (CG507) GLIDE WIRE Terumo 1 [id number] 049951 142493 5 Angled Super Stiff 180cm (KM0419) GASTR[facility]-ENTERIC [facility] 1 0110-18 838212 962209 809396 5 18Fr Tube linkedü (929569) Signature Audit [place] Stage Time Signature Unsigned Intra-Procedure 05/23/2019 Devika Perez 1:42:14 PM RT(R) [facility] [address] [place] [address]
[~2019-05-23 11:17] MED LIST changes: +ACETAMINOPHEN325 MG PO; +CARAFATE1 G/10 ML OTH; +CARDURA1 MG PO; +CATAPRES0.1 MG PO; +DILANTIN50 MG PO; +GLUCAGEN1 MG/VIAL SC; +LEVEMIR IN100 UNITS/ SC; +MILK OF MAGNESI30 ML PO; +MIRALAX17 GM PO; +OMEPRAZOLE20 M1 PO; +POTASSIUM20 MEQ/11 PO; +REGLAN10 MG PO; +STOOL SOFTENER100 M1 PO; +VALIUM 2 MG TAB2 MG PO; +ZOCOR10 MG PO; +ZOFRAN4 MG IV; +ZOFRAN4 MG PO; +ZOLOFT50 MG PO
== END | disposition home or self-care (01) ==
LOC: D.SP 11:17 → D.LAB 12:45 → D.SP 12:45 → D.RAD 13:00
PROVIDERS: ATTEND Family Medicine
DX: K94.29 Other complications of gastrostomy (principal); R11.2 Nausea with vomiting, unspecified

== ENCOUNTER → 2019-09-14 12:32 | Outpatient (CLI) | payer MEDICARE ==
[2018-12-21 15:47] VITALS: BMI 24.9
--- NOTE | ~2019-09-14 | HEMODYNAMI ---
PATIENT:EDYTA MEDINA MEDICAL RECORD: [id number] : 64 [id number] ADMISSION DATE: 09/14/19 Generatedon:09/14/201913:35 Patient name: EDYTA MEDINA Patient #: [id number] SSN: : 1960 Date of study: 09/14/2019 Page: Of Hemodynamic Procedure Report Patient Data Patient Demographics Procedure consent was obtained First Name: EDYTA Gender: Male Last Name: CAROL : 1960 [facility] Initial: MARK Age: 58 year(s) Patient #: [id number] Race: Black Additional ID: [id number] Contact details Address: [address] [place] [address] State: [place] City: [place] Zip code: [address] Past Medical History Allergies: No known allergies Admission Admission Data Admission Date: 09/14/2019 Admission Time: 12:32 Procedure Procedure Types Cath Procedure Peripheral Cath Diagnostic Procedure Gastric G J Tube Replacement Procedure Description Procedure Date Procedure Date: 09/14/2019 Procedure Start Time: 13:26 Procedure Staff Name Function Bhavna Melgoza MD Ordering physician Bhavna Melgoza MD Interpreting charge nurse Luisito Butler MD Performing Physician MARQUIS WEBB RT Monitor Simone Bolton RT Scrub Elza Salmon RN Nurse Procedure Data Cath Procedure Fluoroscopy Diagnostic fluoroscopy Total fluoroscopy Time: 1.9 time: 1.9 min min Diagnostic fluoroscopy Total fluoroscopy dose: 13 dose: 13 mGy mGy Contrast Material Contrast Material Type Amount (ml) Isovue 300 10 Diagnostic catheters Device Type Used For End Catheter Placement Merit Impress KA2 5Fr 65CM catheter ([id number]) Hemodynamics Rest Pre Cath Intra NCS Post Cath Procedure Log Time Note 12:43:30 Simone Bolton RT (R) (CV) sent for patient. Start room use. 12:43:31 Time tracking: Regular hours (M-F 7:00 - 5:00) 12:43:35 Plan of Care:Hemodynamics will remain stable., Cardiac rhythm will remain stable., Comfort level will be maintained., Respiratory function will remain adequate., Patient/ family verbilizes understanding of procedure., Procedure tolerated without complication., Recovers from procedure without complications.. 12:43:41 Patient received from Other to IR Alert and oriented. Tansferred to table in Supine position. 12:43:45 Signed procedure consent form obtained from guardian. 12:43:46 Warm blankets applied, and nay hugger turned on for patient comfort. 12:43:47 Correct patient and procedure confirmed by team. 12:43:47 ECG and BP/O2 sat monitors applied to patient. 12:43:52 - 12:43:55 Pre-procedure instructions explained to patient. 12:43:56 Pre-op teaching completed and patient verbalized understanding. 12:44:06 Patient allergic to No known allergies 12:45:16 - 12:45:31 Left abdomen area was prepped with chlora-prep and draped in sterile fashion 12:45:34 Alarms reviewed by Jaya Smith 12:45:34 Sharps counted by scrub and verified by [email or web address] 12:45:36 - 12:51:09 Use device set IR Diagnostic 12:51:10 Tegaderm 4 x 4 (1626W) opened to sterile field. 12:51:11 Sterile Angiographic Pack opened to sterile field. 12:51:12 Bag Decanter (2002) opened to sterile field. 12:51:30 GASTROSTOMY 18Fr Tri-Funnel Tube (693091) opened to sterile field. 13:23:08 ROADRUNNER .035 145 glide wire (K24143) opened to sterile field. 13:23:13 A Merit Impress KA2 5Fr 65CM catheter ([id number]) was advanced over the wire and used for . 13:23:23 Physician arrived 13:25:30 --------ALL STOP TIME OUT------ 13:25:34 Final Timeout: patient, procedure, and site verified with staff and physician. All members of the team are in agreement. 13:26:02 Procedure started. 13:26:03 Full Disclosure recording started 13:33:27 Procedure ended.(Physican Out) 13:33:33 Fluoroscopy time 01.90 minutes. 13:33:37 Fluoroscopy dose: 13 mGy 13:33:37 Flurop Dose total: 13 13:33:55 Contrast amount:Isovue 300 10ml. 13:34:08 Procedure and supply charges have been captured, reviewed, submitted an d are correct. 13:34:09 Post procedure instruction explained to patient.Patient verbalizes understanding. 13:34:51 [facility] 13:35:12 End room use (Document Last) Device Usage Item Name Manufacture Quantity Catalog Hospital Part Current Minimal Lot# / Number Charge Number Stock Stock Serial# Code Tegaderm 4 x 3M 1 [id number] [id number] [id number] 5 4 (1626W) Sterile Cardinal [address] [id number] 176106 5 Angiographic Health Pack Bag Decanter Microtek 1 100973 64038 625296 5 () Medical Inc. GASTROSTOMY Bard 1 728870 014389 774707 5 18Fr Tri-Funnel Tube (683118) [facility] 1 [id number] 032190 683487 841390 5 [id number] .035 145 glide wire (K35202) Merit Merit 1 [id number] 249535 580797 5 Impress KA2 Medical 5Fr 65CM catheter ([id number]) Signature Audit [place] Stage Time Signature Unsigned Intra-Procedure 09/14/2019 MARQUIS WEBB RT 1:35:43 PM (R) [facility] [address] [place] [address]
== END | disposition home or self-care (01) ==
LOC: D.RAD 12:32
PROVIDERS: ATTEND Family Medicine
DX: R13.10 Dysphagia, unspecified (principal); N18.3 Chronic kidney disease, stage 3 (moderate); E78.5 Hyperlipidemia, unspecified; E11.9 Type 2 diabetes mellitus without complications; F01.50 Vascular dementia, unspecified severity, without behavioral disturbance, psychotic disturbance, mood disturbance, and anxiety; I10 Essential (primary) hypertension

== ENCOUNTER → 2019-09-26 09:55 | Outpatient (CLI) | payer MEDICARE ==
[2018-12-21 15:47] VITALS: BMI 24.9
--- NOTE | ~2019-09-26 | HEMODYNAMI ---
PATIENT:EDYTA MEDINA MEDICAL RECORD: [id number] : 64 [id number] ADMISSION DATE: 09/26/19 Generatedon:09/26/201910:45 Patient name: EDYTA MEDINA Patient #: [id number] SSN: : 1960 Date of study: 09/26/2019 Page: Of Hemodynamic Procedure Report Patient Data Patient Demographics Procedure consent was obtained First Name: EDYTA Gender: Male Last Name: CAROL : 1960 [facility] Initial: MARK Age: 58 year(s) Patient #: [id number] Race: Black Additional ID: [id number] Contact details Address: [address] [place] [address] State: [place] City: [place] Zip code: [address] Past Medical History Allergies: No known allergies Admission Admission Data Admission Date: 09/26/2019 Admission Time: 9:55 Procedure Procedure Types Cath Procedure Peripheral Cath Diagnostic Procedure Hotel Administrative Assistant Peripheral Procedures Gastric G J Tube Replacement Procedure Description Procedure Date Procedure Date: 09/26/2019 Procedure Start Time: 10:26 Procedure Staff Name Function Garrick Liu MD Performing Physician Devika Perez RT Accounting Advisory Services Manager Elza Salmon RN Nurse Lucina Castro RN Nurse Simone Bolton RT Scrub Bhavna Melgoza MD Ordering physician Bhavna Melgoza MD Interpreting senior it recruiter Procedure Data Cath Procedure Fluoroscopy Diagnostic fluoroscopy Total fluoroscopy Time: 2.3 time: 2.3 min min Diagnostic fluoroscopy Total fluoroscopy dose: 37 dose: 37 mGy mGy Contrast Material Contrast Material Type Amount (ml) Isovue 300 10 Hemodynamics Rest Pre Cath Intra NCS Post Cath Procedure Log Time Note 10:06:47 Time tracking: Regular hours (M-F 7:00 - 5:00) 10:07:04 Use device set IR Diagnostic 10:07:06 Tegaderm 4 x 4 (1626W) opened to sterile field. 10:07:07 Sterile Angiographic Pack opened to sterile field. 10:07:08 Bag Decanter (2002S) opened to sterile field. 10:08:08 Patient received from Other to IR Alert and oriented. Tansferred to table in Supine position. 10:08:13 Signed procedure consent form obtained from guardian. 10:08:23 Pre-procedure instructions explained to patient. 10:08:23 Pre-op teaching completed and patient verbalized understanding. 10:08:29 Family unavailable. 10:11:02 Patient allergic to No known allergies 10:11:46 Left abdomen area was prepped with chlora-prep and draped in sterile fashion 10:11:48 - 10:25:29 Physician arrived 10:25:29 --------ALL STOP TIME OUT------ 10:25:30 Final Timeout: patient, procedure, and site verified with staff and physician. All members of the team are in agreement. 10:26:03 Procedure started. 10:26:03 Full Disclosure recording started 10:29:21 [facility] .035 145 glide wire (Q11844) opened to sterile field. 10:30:15 GASTRO-ENTERIC 18Fr Tube (174993) opened to sterile field. 10:34:58 GLIDE CATHETER 5FR ANGLED 100cm (CG508) opened to sterile field. 10:43:36 Procedure ended.(Physican Out) 10:44:00 Fluoroscopy time 02.30 minutes. 10:44:05 Fluoroscopy dose: 37 mGy 10:44:05 Flurop Dose total: 37 10:44:09 Contrast amount:Isovue 300 10ml. 10:45:20 Patient transfered to Other with Stretcher. Device Usage Item Name Manufacture Quantity Catalog Hospital Part Current Minim al Lot# / Number Charge Number Stock Stock Serial# Code Tegaderm 4 x 4 3M 1 1626W [id number] 5 (1626W) Sterile Cardinal 1 [id number] 935880 836032 5 Angiographic Health Pack Bag Decanter Microtek 1 329728 65291 179082 5 () beneSol. [facility] 1 [id number] 649994 577441 307066 5 [id number] .035 145 glide wire (B74170) GASTRO-ENTERIC [place] 1 0110-18 623136 356489 405805 5 18Fr Tube Modti (338875) GLIDE CATHETER Terumo 1 CG508 021313 79586 805860 4 5FR ANGLED 100cm (CG508) Signature Audit [place] Stage Time Signature Unsigned Intra-Procedure 09/26/2019 Devika Perez 10:45:36 AM RT(R) [facility] [id number] [place] [address]
== END | disposition home or self-care (01) ==
LOC: D.RAD 09:55
PROVIDERS: ATTEND Family Medicine
DX: R13.10 Dysphagia, unspecified (principal)

== ENCOUNTER → 2020-01-02 12:24 | Day surgery (SDC) | payer MEDICARE ==
[2018-12-21 15:47] VITALS: BMI 24.9
--- NOTE | ~2020-01-02 | HEMODYNAMI ---
PATIENT:EDYTA MEDINA MEDICAL RECORD: [id number] : 64 [facility] ADMISSION DATE: 01/02/20 Generatedon:01/02/202012:58 Patient name: EDYTA MEDINA Patient #: [id number] SSN: : 1960 Date of study: 01/02/2020 Page: Of Hemodynamic Procedure Report Patient Data Patient Demographics Procedure consent was obtained First Name: EDYTA Gender: Male Last Name: CAROL : 1960 [facility] Initial: MARK Age: 59 year(s) Patient #: [id number] Race: Black Additional ID: [id number] Contact details [address]: [address] [place] [address] State: [place] City: [place] Zip code: [address] Past Medical History Allergies: No known allergies Admission Admission Data Admission Date: 01/02/2020 Admission Time: 12:24 Procedure Procedure Types Cath Procedure Peripheral Cath Diagnostic Procedure Car Sander Peripheral Procedures Gastric G J Tube Replacement Procedure Description Procedure Date Procedure Date: 01/02/2020 Procedure Start Time: 12:44 Procedure Staff Name Function Cam Quinonez MD Performing Physician Devika Perez RT Felt Cementer Simone Bolton RT Scrub Daisy QUINTANA RN Nurse Procedure Data Cath Procedure Fluoroscopy Diagnostic fluoroscopy Total fluoroscopy Time: 3.1 time: 3.1 min min Diagnostic fluoroscopy Total fluoroscopy dose: 72 dose: 72 mGy mGy Contrast Material Contrast Material Type Amount (ml) Isovue 300 30 Hemodynamics Rest Pre Cath Intra NCS Post Cath Procedure Log Time Note 12:37:27 Time tracking: Regular hours (M-F 7:00 - 5:00) 12:37:41 Patient received from Other to IR Alert and oriented. Tansferred to table in Supine position. 12:37:45 Signed procedure consent form obtained from guardian. 12:37:49 - 12:37:53 Family unavailable. 12:37:55 Patient NPO since Midnight. 12:38:00 Is the patient allergic to Iodine/contrast media? No. 12:38:13 Left abdomen area was prepped with chlora-prep and draped in sterile fashion 12:38:16 - 12:38:24 Use device set IR Diagnostic 12:38:27 Sterile Angiographic Pack opened to sterile field. 12:38:28 Bag Decanter (2002S) opened to sterile field. 12:41:53 GLIDE CATHETER 5FR ANGLED 65cm (CG507) opened to sterile field. 12:42:25 GLIDE WIRE ANGLE 180cm ([id number]) opened to sterile field. 12:43:04 TORQUE DEVICE PLASTIC .038 ( TD01) opened to sterile field. 12:43:43 Physician arrived 12:43:44 --------ALL STOP TIME OUT------ 12:43:45 Final Timeout: patient, procedure, and site verified with staff and physician. All members of the team are in agreement. 12:44:13 Fire Safety Assessment: A--An alcohol-based skin anteseptic being used preoperatively. 12:44:18 Procedure started. 12:44:18 Full Disclosure recording started 12:56:52 GASTRO-ENTERIC 18Fr Tube ([id number]) opened to sterile field. 12:57:15 Procedure ended.(Physican Out) 12:57:34 Fluoroscopy time 03.10 minutes. 12:57:40 Flurop Dose total: 72 12:57:40 Fluoroscopy dose: 72 mGy 12:57:49 Contrast amount:Isovue 300 30ml. 12:58:14 Procedure and supply charges have been captured, reviewed, submitted an d are correct. Device Usage Item Name Manufacture Quantity Catalog Hospital Part Current Minim al Lot# / Number Charge Number Stock Stock Serial# Code Sterile Cardinal 1 [id number] 5 Angiographic Health Pack Bag Decanter Microtek 1 [id number] 29587 [id number] 5 () Medical Inc. GLIDE CATHETER Terumo 1 [id number] [id number] 189613 5 5FR ANGLED 65cm (CG507) GLIDE WIRE Terumo 1 [id number] 694990 041912 457089 5 ANGLE 180cm (JB5249) TORQUE DEVICE [place] 1 TD01 454231 303027 201268 5 PLASTIC .038 ( Scientific TD01) [facility] 1 0110-18 146915 599924 366656 5 18Fr Tube ACE (403891) Signature Audit Kim Stage Time Signature Unsigned Intra-Procedure 01/02/2020 Devika Perez 12:58:49 PM RT(R) [place] [id number] [place] [address]
== END | disposition home or self-care (01) ==
LOC: D.SP 12:24
PROVIDERS: ATTEND Family Medicine
DX: R13.10 Dysphagia, unspecified (principal)

== ENCOUNTER → 2020-04-01 11:29 | Outpatient (CLI) | payer MEDICARE ==
[2018-12-21 15:47] VITALS: BMI 24.9
--- NOTE | ~2020-04-01 | HEMODYNAMI ---
PATIENT:EDYTA MEDINA MEDICAL RECORD: [id number] : 64 [id number] ADMISSION DATE: 04/01/20 Generatedon:04/01/202012:03 Patient name: EDYTA MEDINA Patient #: [id number] SSN: : 1960 Date of study: 04/01/2020 Page: Of Hemodynamic Procedure Report Patient Data Patient Demographics Procedure consent was obtained First Name: EDYTA Gender: Male Last Name: CAROL : 1960 Middle Initial: MARK Age: 59 year(s) Patient #: [id number] Race: Black Additional ID: [id number] Contact details [address]: [address] [place] [address] State: [place] City: [place] Zip code: [address] Past Medical History Allergies: No known allergies Admission Admission Data Admission Date: 04/01/2020 Admission Time: 11:29 Procedure Procedure Types Cath Procedure Peripheral Cath Diagnostic Procedure Gastric G J Tube Replacement Procedure Description Procedure Date Procedure Date: 04/01/2020 Procedure Start Time: 11:52 Procedure Staff Name Function Bhavna Melgoza MD Ordering physician Cam Quinonez MD Performing Physician MARQUIS WEBB RT Monitor Simone Bolton RT Scrub Elza Salmon RN Nurse Procedure Data Cath Procedure Fluoroscopy Diagnostic fluoroscopy Total fluoroscopy Time: 0.8 time: 0.8 min min Contrast Material Contrast Material Type Amount (ml) Isovue 300 35 Hemodynamics Rest Pre Cath Intra NCS Post Cath Procedure Log Time Note 11:40:09 Use device set IR Diagnostic 11:40:11 Bag Decanter (2002S) opened to sterile field. 11:40:12 Sterile Angiographic Pack opened to sterile field. 11:40:12 Tegaderm 4 x 4 (1626W) opened to sterile field. 11:40:22 Simone Bolton RT (R) (CV) sent for patient. Start room use. 11:40:24 Time tracking: Regular hours (M-F 7:00 - 5:00) 11:40:40 Patient received from Other to IR Alert and oriented. Tansferred to table in Supine position. 11:40:42 Signed procedure consent form obtained from patient. 11:40:43 Warm blankets applied, and nay hugger turned on for patient comfort. 11:40:44 Correct patient and procedure confirmed by team. 11:40:49 - 11:40:51 Pre-procedure instructions explained to patient. 11:40:53 Pre-op teaching completed and patient verbalized understanding. 11:41:01 Patient allergic to No known allergies 11:41:06 - 11:41:19 Left Abdomen was prepped with chlora-prep and draped in sterile fashion . 11:41:20 Alarms reviewed by Jaya Smith 11:41:20 Sharps counted by scrub and verified by Damon 11:41:22 - 11:50:23 Physician arrived 11:50:24 --------ALL STOP TIME OUT------ 11:50:26 Final Timeout: patient, procedure, and site verified with staff and physician. All members of the team are in agreement. 11:50:36 Left abdomen site verified by team. 11:50:43 - 11:52:00 Procedure started. 11:52:01 Full Disclosure recording started 11:53:15 GLIDE WIRE Angled Super Stiff 180cm (BS4964) opened to sterile field. 11:56:02 GASTROSTOMY 18Fr Tri-Funnel Tube ([id number]) opened to sterile field. 11:56:34 MICROPUNCTURE 4FR [employer] ([id number]) opened to sterile field. 12:02:04 Procedure ended.(Physican Out) 12:02:07 Fluoroscopy time 00.80 minutes. 12:02:19 Dose Area Product 17 mGy/cm. 12:02:24 Contrast amount:Isovue 300 35ml. 12:02:26 Sharps counted by scrub and verified by R.N. 12:02:34 Post-op/insertion site Left Abdominal area dressed using a 4 x 4 and Tegaderm. 12:02:40 See physician's report for complete and final results. 12:02:43 Procedure and supply charges have been captured, reviewed, submitted an d are correct. 12:03:10 End room use (Document Last) Device Usage Item Name Manufacture Quantity Catalog Hospital Part Current Minima l Lot# / Number Charge Number Stock Stock Serial# Code Bag Decanter Microtek 1 [id number] 5 () Medical Inc. Sterile Cardinal 1 [id number] [id number] [id number] 5 Angiographic Health Pack Tegaderm 4 x 3M 1 1626W 071624 878633 669776 5 4 (1626W) GLIDE WIRE Terumo 1 [id number] 535012 608697 550881 5 Super Stiff Angled 260cm (LK1111) GLIDE WIRE Terumo 1 [id number] 765386 646106 5 Angled Super Stiff 180cm (RG4046) GASTROSTOMY Bard 1 298604 481025 931907 5 18Fr Tri-Funnel Tube (516681) MICROPUNCTURE [facility] 1 [id number] 229282 650548 729886 5 4FR Cook ([id number]) Signature Audit [place] Stage Time Signature Unsigned Intra-Procedure 04/01/2020 MARQUIS WEBB RT 12:03:22 PM (R) [facility] [address] [place] [address]
== END | disposition home or self-care (01) ==
LOC: D.RAD 11:29
PROVIDERS: ATTEND General Practice
DX: Z43.1 Encounter for attention to gastrostomy (principal); N39.0 Urinary tract infection, site not specified; K29.70 Gastritis, unspecified, without bleeding